=== PATIENT | male | born 1985 | race Two or more races ===

== ENCOUNTER 2022-05-03 01:04 | Emergency (ER) | payer SELFPAY ==
[~2022-05-03] VITALS: Ht 165.1 cm; Wt 79.4 kg
[2022-05-03 01:17] VITALS: BP 137/78
--- NOTE | 2022-05-03 02:24 | NUR ---
pt is medically cleared for booking and released under the care of [facility] officers. pt is in stable condition and left in hand cuffs
== END 2022-05-03 02:25 ==
LOC: ER 01:14
DX: Z20.822 Contact with and (suspected) exposure to COVID-19
CPT/HCPCS: 99283; 87426; C9803